=== PATIENT | female | born 1960 | race Caucasian/White ===

== ENCOUNTER → 2018-02-18 | Outpatient (CLI) | payer OTHER ==
[~2018-02-18] MED LIST: CRANBERRY TABL1 EACH PO; FENOFIBRATE160 M1 PO; Fish Oil PO; IMITREX100 MG PO; IRON PO; IRON325 M1 PO; IRON45 MG PO; K-Dur PO; KRILL OIL500 MG PO; METFORMIN HCL500 MG PO; POTASSIUM CHLOR8 ME3 PO; POTASSIUM-9999 MG PO; PROBIOTIC1 EAC2 PO; PROTONIX40 MG PO; TRICOR145 MG PO; Tricor PO; VENTOLIN HFA18 GM IH; VITAMIN B-6100 MG PO; VITAMIN B12-FO1 EACH PO
== END | disposition home or self-care (01) ==
LOC: CDC 08:48
DX: Z01.810 Encounter for preprocedural cardiovascular examination (principal); K80.10 Calculus of gallbladder with chronic cholecystitis without obstruction
CPT/HCPCS: 93000

== ENCOUNTER 2018-03-01 05:38 | Day surgery (SDC) | payer OTHER ==
[~2018-03-01] VITALS: Ht 160 cm; Wt 79.3 kg
[~2018-03-01 05:38] MED LIST changes: +ALLEGRA-D 241 TABLET PO; +GLUCOTROL10 MG PO
[2018-03-01 06:06] VITALS: BP 164/77
[2018-03-01] MEDS ORDERED: TORADOL10 MG PO (08:44)
[2018-03-01 09:45] VITALS: BP 160/66
[2018-03-01 10:22] VITALS: BP 128/75
== END 2018-03-01 10:22 | disposition home or self-care (01) ==
LOC: SDC 05:38
PROVIDERS: Surgery
PROC: 0FT44ZZ Resection of Gallbladder, Percutaneous Endoscopic Approach (ICD-10-PCS; principal; 2018-03-01)
DX: K80.10 Calculus of gallbladder with chronic cholecystitis without obstruction (principal); K66.0 Peritoneal adhesions (postprocedural) (postinfection); E11.9 Type 2 diabetes mellitus without complications; K21.9 Gastro-esophageal reflux disease without esophagitis; E78.00 Pure hypercholesterolemia, unspecified; M06.9 Rheumatoid arthritis, unspecified; D50.9 Iron deficiency anemia, unspecified; Z79.84 Long term (current) use of oral hypoglycemic drugs
CPT/HCPCS: 82948; 88304; J1100; J1885; J2250; J2405; J2710; J3010; J7643; Q0175; S0020; S0074